=== PATIENT | female | born 1970 | race Caucasian/White ===

== ENCOUNTER → 2018-01-15 | Day surgery (SDC) | payer OTHER ==
[~2018-01-15] MED LIST: LIDOCAINE 2% 100 MG/5 ML SYRINGE.; PROPOFOL 20 ML IV
[2018-01-15] MEDS: IV RINGERS,LACTATED 1000ML 1,000 ML IV (16:06)
[2018-01-15 17:29] LABS: NEG OBC UR NEG; POS OBC UR POS; U PREG PATIENT NEGATIVE (NEG)
== END | disposition home or self-care (01) ==
LOC: SURG 15:36
DX: D12.5 Benign neoplasm of sigmoid colon (principal); K64.0 First degree hemorrhoids; K29.50 Unspecified chronic gastritis without bleeding; E03.9 Hypothyroidism, unspecified; Z90.49 Acquired absence of other specified parts of digestive tract; Z98.51 Tubal ligation status; Z98.890 Other specified postprocedural states
CPT/HCPCS: 43235; 81025; 88305; J2704